=== PATIENT | female | born 1995 | race Caucasian/White ===

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

== ENCOUNTER 2017-03-17 20:55 | Emergency (ER) | payer OTHER ==
[~2017-03-17] VITALS: Ht 160 cm; Wt 68.1 kg
[~2017-03-17 20:55] MED LIST changes: +HYDR-3363 PO; -HYDR25T PO; +HYDR50TA70; +LATU1TAB PO; -RISP1TAB41 PO; +RISP1TAB42 PO; +TOPA50TA8 PO; +ZOFR4TAB3 PO
[2017-03-17 21:00] VITALS: BP 118/64
[2017-03-17 21:50] LABS: BASO % 0.3 % (0.0-1.0); EOS # 0.2 K/mm3 (0.0-0.50); EOS % 3.3 % (0.0-3.0); LARGE UNSTAINED CELL # 0.2 K/mm3 (0.0-0.4); LARGE UNSTAINED CELL % 2.1 % (0.0-4.0); LYMPH # 3.5 K/mm3 (1.5-6.5); LYMPH % 44.5 % (24.0-44.0); MEAN CORPUSCULAR HEMOGLOBIN 32.6 pg (27.0-33.0); MEAN CORPUSCULAR HGB CONC 33.1 g/dl (32.0-36.5); MEAN CORPUSCULAR VOLUME 98.5 fl (80.0-96.0); MONO # 0.4 K/mm3 (0.0-0.8); MONO % 5.4 % (0.0-5.0); NEUTROPHILS # 3.3 K/mm3 (1.8-7.7); NEUTROPHILS % 44.5 % (36.0-66.0); PLATELET COUNT, AUTOMATED 268 k/mm3 (150-450); RED CELL DISTRIBUTION WIDTH 12.2 % (11.5-14.5); WHITE BLOOD COUNT 7.5 K/mm3 (4.0-10.0)
[2017-03-17 21:53] LABS: CONTROL LINE HCG INT CTR LINE PRESENT
[2017-03-17 22:02] LABS: ALBUMIN 4.3 GM/DL (3.2-5.2); ALKALINE PHOSPHATASE 88 U/L (45-117); ALT/SGPT 27 U/L (12-78); ANION GAP 7 MEQ/L (8-16); AST/SGOT 11 U/L (15-37); BILIRUBIN,DIRECT < 0.1 MG/DL (0.0-0.2); BILIRUBIN,TOTAL 0.3 MG/DL (0.2-1.0); BLOOD UREA NITROGEN 6 MG/DL (7-18); CALCIUM LEVEL 8.7 MG/DL (8.5-10.1); CARBON DIOXIDE LEVEL 25 MEQ/L (21-32); CHLORIDE LEVEL 110 MEQ/L (98-107); CREATININE FOR GFR 0.55 MG/DL (0.55-1.02); GLUCOSE, FASTING 102 MG/DL (70-105); POTASSIUM SERUM 3.6 MEQ/L (3.5-5.1); SODIUM LEVEL 142 MEQ/L (136-145); TOTAL PROTEIN 7.6 GM/DL (6.4-8.2)
--- NOTE | 2017-03-17 23:00 | REPUSA ---
HISTORY: Right upper quadrant pain, nausea and vomiting. TECHNIQUE: Right upper quadrant ultrasound. ULTRASOUND RUQ: Liver: No intrahepatic ductal dilation. Gallbladder: Contracted and without stones or wall thickening. Common bile duct: Nondistended at 2 mm. Pancreas: No pancreatic duct dilation. Right kidney: 11.4 x 4.6 x 3.6 cm. Extrarenal pelvis without stones or hydronephrosis. Aorta: Normal caliber. Peritoneum: No free fluid. IMPRESSION: No acute right upper quadrant findings.
[2017-03-17] MEDS ORDERED: MACR100C43 PO (23:06)
== END 2017-03-17 23:20 | disposition home or self-care (01) ==
LOC: M ED 20:55
DX: K42.9 Umbilical hernia without obstruction or gangrene (principal); N39.0 Urinary tract infection, site not specified; R10.9 Unspecified abdominal pain; F17.210 Nicotine dependence, cigarettes, uncomplicated

== ENCOUNTER → 2017-04-02 | Outpatient (REF) | payer OTHER ==
[~2017-04-02] MED LIST changes: +MACR100C43 PO
== END ==
LOC: M SFHCCAPE 14:09
PROVIDERS: ATTEND Physician Assistant
DX: A74.9 Chlamydial infection, unspecified (principal); Z53.9 Procedure and treatment not carried out, unspecified reason

== ENCOUNTER → 2017-05-10 | Outpatient (REF) | payer OTHER | LOC: M SFHCCAPE 07:36 | PROVIDERS: ATTEND Physician Assistant | DX: R35.0 Frequency of micturition (principal) ==

== ENCOUNTER → 2017-07-23 | Outpatient (REF) | payer OTHER ==
[2017-07-23 17:25] LABS: BASO % 0.1 % (0.0-1.0); EOS # 0.1 10^3/uL (0.0-0.50); EOS % 1.7 % (0.0-3.0); IMMATURE GRANULOCYTE % 0.1 % (0-0); LYMPH # 3.4 10^3/uL (1.5-6.5); LYMPH % 44.7 % (24.0-44.0); MEAN CORPUSCULAR HEMOGLOBIN 32.1 pg (27.0-33.0); MEAN CORPUSCULAR HGB CONC 33.9 g/dl (32.0-36.5); MEAN CORPUSCULAR VOLUME 94.7 fl (80.0-96.0); MONO # 0.7 10^3/uL (0.0-0.8); MONO % 9.5 % (0.0-5.0); NEUTROPHILS # 3.3 10^3/uL (1.8-7.7); NEUTROPHILS % 43.9 % (36.0-66.0); PLATELET COUNT, AUTOMATED 280 10^3/uL (150-450); RED CELL DISTRIBUTION WIDTH 11.6 % (11.5-14.5); WHITE BLOOD COUNT 7.5 10^3/uL (4.0-10.0)
[2017-07-23 17:52] LABS: ALBUMIN 4.3 GM/DL (3.2-5.2); ALBUMIN/GLOBULIN RATIO 1.39 (1.00-1.93); ALKALINE PHOSPHATASE 81 U/L (45-117); ALT/SGPT 15 U/L (12-78); ANION GAP 8 MEQ/L (8-16); AST/SGOT 14 U/L (7-37); BILIRUBIN,TOTAL 0.4 MG/DL (0.2-1.0); BLOOD UREA NITROGEN 5 MG/DL (7-18); CALCIUM LEVEL 8.6 MG/DL (8.5-10.1); CARBON DIOXIDE LEVEL 24 MEQ/L (21-32); CHLORIDE LEVEL 106 MEQ/L (98-107); GLUCOSE, FASTING 76 MG/DL (70-105); HCG, SERUM QUANTITATIVE 41038 MIU/ML; POTASSIUM SERUM 4.1 MEQ/L (3.5-5.1); SODIUM LEVEL 138 MEQ/L (136-145); TOTAL PROTEIN 7.4 GM/DL (6.4-8.2)
== END ==
LOC: M SFHCCAPE 08:09
PROVIDERS: ATTEND Physician Assistant
DX: Z32.01 Encounter for pregnancy test, result positive (principal)

== ENCOUNTER 2017-08-02 19:12 | Emergency (ER) | payer OTHER ==
[2017-08-02 21:12] LABS: AMORPHOUS SEDIMENT RFX SMALL (NEGATIVE); KETONE, URINE AUTO RFX NEGATIVE (NEGATIVE); LEUKOCYTE ESTERASE UR AUTO RFX 3+ (NEGATIVE); NITRITE, URINE AUTO RFX NEGATIVE (NEGATIVE); RBC, URINE AUTO RFX 0 /HPF (0-3); SQUAM EPITHELIAL CELL UR AURFX 0 /HPF (0-6); WBC, URINE AUTO RFX 3 /HPF (0-3)
== END 2017-08-02 22:22 | disposition home or self-care (01) ==
LOC: M ED 19:12
DX: O23.91 Unspecified genitourinary tract infection in pregnancy, first trimester (principal); O99.511 Diseases of the respiratory system complicating pregnancy, first trimester; J45.909 Unspecified asthma, uncomplicated; Z3A.00 Weeks of gestation of pregnancy not specified; Z87.891 Personal history of nicotine dependence
CPT/HCPCS: 81001

== ENCOUNTER → 2017-08-16 | Outpatient (CLI) | payer OTHER ==
[2017-08-16 20:19] LABS: BASO % 0.1 % (0.0-1.0); EOS # 0.1 10^3/uL (0.0-0.50); HEMATOCRIT 34.5 % (36.0-47.0); HEMOGLOBIN 11.6 g/dl (12.0-16.0); IMMATURE GRANULOCYTE % 0.3 % (0-0); LYMPH # 2.6 10^3/uL (1.5-6.5); LYMPH % 36.9 % (24.0-44.0); MEAN CORPUSCULAR HEMOGLOBIN 32.6 pg (27.0-33.0); MEAN CORPUSCULAR HGB CONC 33.6 g/dl (32.0-36.5); MEAN CORPUSCULAR VOLUME 96.9 fl (80.0-96.0); MONO # 0.6 10^3/uL (0.0-0.8); MONO % 7.7 % (0.0-5.0); NEUTROPHILS # 3.8 10^3/uL (1.8-7.7); PLATELET COUNT, AUTOMATED 296 10^3/uL (150-450); RED BLOOD COUNT 3.56 10^6/uL (4.00-5.40); RED CELL DISTRIBUTION WIDTH 12.1 % (11.5-14.5); WHITE BLOOD COUNT 7.1 10^3/uL (4.0-10.0)
[2017-08-16 22:24] LABS: CHLAMYDIA DNA AMPLIFICATION NEGATIVE (NEGATIVE); GC DNA AMPLIFICATION NEGATIVE (NEGATIVE)
[2017-08-17 17:47] LABS: RUBELLA IgG QUALITATIVE EQUIVOCAL (IMMUNE)
[2017-08-17 18:08] LABS: HBsAg Prenatal NEGATIVE (NEGATIVE)
[2017-08-17 18:16] LABS: HEPATITIS C VIRUS ABY INDEX 0.2 INDEX (<0.8)
[2017-08-17 18:16] LABS: HIV 1&2 SCREEN CENTAUR NEGATIVE (NEGATIVE)
== END ==
LOC: M SMT 15:52
DX: Z34.81 Encounter for supervision of other normal pregnancy, first trimester (principal)
CPT/HCPCS: 86762

== ENCOUNTER → 2017-10-19 | Outpatient (CLI) | payer OTHER | LOC: M SMT 11:32 | DX: Z31.438 Encounter for other genetic testing of female for procreative management (principal) | CPT/HCPCS: 36415 ==

== ENCOUNTER 2017-11-24 23:56 | Outpatient (CLI) | payer OTHER ==
[2017-11-25] MEDS ORDERED: ONDANSETRON 4 MG ORAL DISINTEGRATING TAB (S0181) PO (01:15)
[2017-11-25] MEDS: LACTATED RINGER'S 1000 ML IV (01:22)
[2017-11-25] MEDS: FAMOTIDINE 20 MG TAB PO (01:42)
[2017-11-25] MEDS: LR 1,000 ML IV (03:00)
== END 2017-11-25 06:31 | disposition home or self-care (01) ==
LOC: M LDO 23:56
DX: O21.9 Vomiting of pregnancy, unspecified (principal); O98.512 Other viral diseases complicating pregnancy, second trimester; Z3A.24 24 weeks gestation of pregnancy

== ENCOUNTER → 2017-12-24 | Outpatient (CLI) | payer OTHER ==
[2017-12-24 15:52] LABS: HEMATOCRIT 28.1 % (36.0-47.0); HEMOGLOBIN 9.7 g/dl (12.0-15.5); MEAN CORPUSCULAR HEMOGLOBIN 34.2 pg (27.0-33.0); MEAN CORPUSCULAR HGB CONC 34.5 g/dl (32.0-36.5); MEAN CORPUSCULAR VOLUME 98.9 fl (80.0-96.0); PLATELET COUNT, AUTOMATED 227 10^3/uL (150-450); RED BLOOD COUNT 2.84 10^6/uL (4.00-5.40); RED CELL DISTRIBUTION WIDTH 12.4 % (11.5-14.5); WHITE BLOOD COUNT 9.4 10^3/uL (4.0-10.0)
[2017-12-24 16:08] LABS: GLUCOSE CHALLENGE TEST 1 HOUR 109 MG/DL (LESS THAN 140)
== END ==
LOC: M LAB 14:38
DX: Z34.82 Encounter for supervision of other normal pregnancy, second trimester (principal)
CPT/HCPCS: 82950

== ENCOUNTER → 2018-02-18 | Outpatient (REF) | payer OTHER | LOC: M LAB REF 17:13 | DX: Z34.83 Encounter for supervision of other normal pregnancy, third trimester (principal) ==

== ENCOUNTER → 2018-03-08 | Outpatient (CLI) | payer OTHER | LOC: M LDO 19:36 | DX: O47.1 False labor at or after 37 completed weeks of gestation (principal); Z3A.39 39 weeks gestation of pregnancy; O99.333 Smoking (tobacco) complicating pregnancy, third trimester; F17.210 Nicotine dependence, cigarettes, uncomplicated | CPT/HCPCS: 59025 ==

== ENCOUNTER 2018-03-13 07:30 | Inpatient (IN) | payer OTHER ==
[2018-03-13 08:52] LABS: HEMOGLOBIN 11.4 g/dl (12.0-15.5); MEAN CORPUSCULAR HEMOGLOBIN 32.7 pg (27.0-33.0); MEAN CORPUSCULAR HGB CONC 33.5 g/dl (32.0-36.5); MEAN CORPUSCULAR VOLUME 97.4 fl (80.0-96.0); PLATELET COUNT, AUTOMATED 221 10^3/uL (150-450); RED BLOOD COUNT 3.49 10^6/uL (4.00-5.40); RED CELL DISTRIBUTION WIDTH 12.8 % (11.5-14.5)
[2018-03-13] MEDS: OXYTOCIN DRIP 30 UNITS in APPROPRIATE DILUENT 1 EA IV (10:14)
[2018-03-13] MEDS ORDERED: LR 1,000 ML IV (10:14)
[2018-03-13] MEDS ORDERED: RHOGAM 300 MCG (1500 IU) INJ (J2790) IM (10:15)
[2018-03-13] MEDS ORDERED: PROMETHAZINE 25 MG TAB PO (10:15)
[2018-03-13] MEDS ORDERED: DOCUSATE SODIUM 100 MG CAP PO (10:15)
[2018-03-13] MEDS ORDERED: ONDANSETRON 4MG/2ML VIAL (J2405) IV (10:15)
[2018-03-13] MEDS ORDERED: DIBUCAINE 1% OINTMENT 30GM TOP (10:15)
[2018-03-13] MEDS: IBUPROFEN 800 MG TAB PO (12:28)
[2018-03-13] MEDS: PRENATAL VITAMINS CHEWABLE TABLET PO (12:28)
[2018-03-13] MEDS: LR 1,000 ML IV (12:37)
[2018-03-13] MEDS: ACETAMINOPHEN 500 MG TAB PO (19:50)
[2018-03-14] MEDS: PRENATAL VITAMINS CHEWABLE TABLET PO (07:49)
[2018-03-14] MEDS: IBUPROFEN 800 MG TAB PO (07:51)
[2018-03-14] MEDS: MEASLES,MUMPS,RUBELLA VACCINE INJ (MMR-II) (90707) SC (11:33)
== END 2018-03-14 14:40 | disposition home or self-care (01) | DRG 541 ==
LOC: M LDO 07:30 → M LDI 08:29 → M OBS 12:02
PROVIDERS: Obstetrics & Gynecology
PROC: 10E0XZZ Delivery of Products of Conception, External Approach (ICD-10-PCS; principal; 2018-03-13)
PROC: 10D17Z9 Manual Extraction of Products of Conception, Retained, Via Natural or Artificial Opening (ICD-10-PCS; 2018-03-13)
DX: O73.0 Retained placenta without hemorrhage (principal); Z37.0 Single live birth; Z3A.40 40 weeks gestation of pregnancy

== ENCOUNTER → 2018-10-17 | Outpatient (REF) | payer OTHER ==
[~2018-10-17] MED LIST changes: -ACET50TA PO; +COLA100C5 PO; +FLAG500T PO; +LATU1TAB; +MAPA500T2 PO; +MOTR200T44 PO; +PRENTAB9 PO; +ZOFR4TAB14 PO; -ZOFR4TAB3 PO
[2018-10-17 18:08] LABS: INFLUENZA A AMPLIFICATION NEGATIVE (NEGATIVE); INFLUENZA B AMPLIFICATION NEGATIVE (NEGATIVE)
== END ==
LOC: M LAB REF 16:25
PROVIDERS: ATTEND Physician Assistant
DX: J11.1 Influenza due to unidentified influenza virus with other respiratory manifestations (principal)

== ENCOUNTER → 2019-01-13 | Outpatient (REF) | payer OTHER ==
[~2019-01-13] MED LIST changes: +TRAZ1TAB10 PO; -TRAZO50TA PO
[2019-01-13 19:30] LABS: APPEARANCE, URINE HAZY (CLEAR); BACTERIA, URINE AUTO NEGATIVE (NEGATIVE); BILIRUBIN, URINE AUTO NEGATIVE (NEGATIVE); BLOOD, URINE BLOOD 2+ (NEGATIVE); COLOR, URINE YELLOW (YELLOW); GLUCOSE, URINE (UA) AUTO NEGATIVE (NEGATIVE); KETONE, URINE AUTO NEGATIVE (NEGATIVE); LEUKOCYTE ESTERASE, URINE AUTO TRACE (NEGATIVE); MUCUS, URINE SMALL (NEGATIVE); NITRITE, URINE AUTO NEGATIVE (NEGATIVE); PROTEIN, URINE AUTO NEGATIVE (NEGATIVE); RBC, URINE AUTO 1 /HPF (0-3); SPECIFIC GRAVITY URINE AUTO 1.016 (1.002-1.035); SQUAMOUS EPITHELIAL CELL UR AU 2 /HPF (0-6); UROBILINOGEN, URINE AUTO 0.2 mg/dL (0.0-2.0); WBC, URINE AUTO 1 /HPF (0-3)
== END ==
LOC: M LAB REF 17:33
PROVIDERS: ATTEND Obstetrics & Gynecology
DX: M54.5 Low back pain (principal)

== ENCOUNTER 2019-01-19 02:00 | Emergency (ER) | payer OTHER ==
[~2019-01-19] VITALS: Ht 157.5 cm; Wt 75.0 kg
[2019-01-19 02:39] LABS: BASO % 0.1 % (0.0-1.0); EOS # 0.1 10^3/uL (0.0-0.50); HEMATOCRIT 38.1 % (36.0-47.0); HEMOGLOBIN 12.8 g/dl (12.0-15.5); LYMPH # 1.2 10^3/uL (1.5-6.5); LYMPH % 17.2 % (24.0-44.0); MEAN CORPUSCULAR HEMOGLOBIN 32.4 pg (27.0-33.0); MEAN CORPUSCULAR HGB CONC 33.6 g/dl (32.0-36.5); MEAN CORPUSCULAR VOLUME 96.5 fl (80.0-96.0); MONO # 0.4 10^3/uL (0.0-0.8); MONO % 6.3 % (0.0-5.0); NEUTROPHILS % 75.3 % (36.0-66.0); PLATELET COUNT, AUTOMATED 280 10^3/uL (150-450); RED BLOOD COUNT 3.95 10^6/uL (4.00-5.40); WHITE BLOOD COUNT 6.7 10^3/uL (4.0-10.0)
[2019-01-19 03:01] LABS: ALBUMIN 4.2 GM/DL (3.2-5.2); ALT/SGPT 25 U/L (12-78); BILIRUBIN,DIRECT 0.2 MG/DL (0.0-0.2); BILIRUBIN,TOTAL 0.6 MG/DL (0.2-1.0); BLOOD UREA NITROGEN 7 MG/DL (7-18); CALCIUM LEVEL 9.3 MG/DL (8.5-10.1); CARBON DIOXIDE LEVEL 27 MEQ/L (21-32); CHLORIDE LEVEL 105 MEQ/L (98-107); CREATININE FOR GFR 0.64 MG/DL (0.55-1.30); GLOMERULAR FILTRATION RATE > 60.0 (>60); GLUCOSE, FASTING 91 MG/DL (70-100); LIPASE 70 U/L (73-393); POTASSIUM SERUM 4.2 MEQ/L (3.5-5.1); SODIUM LEVEL 138 MEQ/L (136-145); TOTAL PROTEIN 7.5 GM/DL (6.4-8.2)
[2019-01-19 03:05] LABS: HCG, SERUM QUALITATIVE NEGATIVE (NEGATIVE)
[2019-01-19] MEDS ORDERED: NS 1,000 ML IV ONE (04:00)
[2019-01-19] MEDS ORDERED: KETOROLAC 30 MG/ML VIAL (J1885) IV ONE (04:00)
[2019-01-19] MEDS ORDERED: ONDANSETRON 4MG/2ML VIAL (J2405) IV ONE (04:00)
[2019-01-19] MEDS ORDERED: ONDA4TAB6 PO (07:14)
[2019-01-19 07:30] VITALS: BP 103/56
--- NOTE | 2019-01-19 18:56 | ECGEPIP ---
[facility] [place] - ED Test Date: 2019-01-19 Pat Name: SUKH PAULSON Department: Room: - Gender: Female Direct Care Supervisor: SEAN : 1995 Requested By: BRIELLE Harris Order Number: [id number] Reading MD: Marion Beckwith Measurements Intervals [place] Rate: 94 P: 40 FL: 132 QRS: QRSD: 89 T: 6 QT: 320 QTc: 402 Interpretive Statements SINUS RHYTHM POSSIBLE RIGHT VENTRICULAR CONDUCTION DELAY MINIMAL VOLTAGE CRITERIA FOR LVH, CONSIDER NORMAL VARIANT POSSIBLE ANTERIOR MYOCARDIAL INFARCTION, OF INDETERMINATE AGE Electronically Signed on 01-19-2019 18:55:48 EDT by Marion Beckwith
== END 2019-01-19 07:54 | disposition home or self-care (01) ==
LOC: M ED 02:00
DX: K52.9 Noninfective gastroenteritis and colitis, unspecified (principal)
CPT/HCPCS: 80048; 80076; 81001; 83690; 84703; 85025; 87086; 93005; 96361; 96374; 96375; 99285; J1885; J2405

== ENCOUNTER 2019-11-18 23:48 | Inpatient (IN) | payer MEDICAID, OTHER ==
[~2019-11-18] VITALS: Ht 157.5 cm; Wt 75.3 kg
[~2019-11-18 23:48] MED LIST changes: +HYDR1TAB33 PO; -HYDRO50TAB PO; +ONDA4TAB6 PO
[2019-11-19 00:24] LABS: HEMATOCRIT 40.4 % (36.0-47.0); HEMOGLOBIN 13.9 g/dl (12.0-15.5); MEAN CORPUSCULAR HEMOGLOBIN 32.4 pg (27.0-33.0); MEAN CORPUSCULAR HGB CONC 34.4 g/dl (32.0-36.5); MEAN CORPUSCULAR VOLUME 94.2 fl (80.0-96.0); PLATELET COUNT, AUTOMATED 377 10^3/uL (150-450); RED BLOOD COUNT 4.29 10^6/uL (4.00-5.40); WHITE BLOOD COUNT 11.8 10^3/uL (4.0-10.0)
[2019-11-19 00:41] LABS: HCG, SERUM QUALITATIVE NEGATIVE (NEGATIVE)
[2019-11-19 00:52] LABS: AMPHETAMINES LEVEL URINE NEGATIVE (NEGATIVE); BARBITURATES URINE NEGATIVE (NEGATIVE); BENZODIAZEPINES URINE NEGATIVE (NEGATIVE); CANNABINOIDS URINE POSITIVE (NEGATIVE); COCAINE METABOLITE URINE NEGATIVE (NEGATIVE); METHADONE URINE NEGATIVE (NEGATIVE); OPIATES URINE NEGATIVE (NEGATIVE); PHENCYCLIDINE URINE NEGATIVE (NEGATIVE)
[2019-11-19 01:00] LABS: ACETAMINOPHEN LEVEL < 2.0 UG/ML (10.0-30.0); ALBUMIN 4.7 GM/DL (3.2-5.2); ALT/SGPT 35 U/L (12-78); BILIRUBIN,DIRECT 0.1 MG/DL (0.0-0.2); BILIRUBIN,TOTAL 0.4 MG/DL (0.2-1.0); BLOOD UREA NITROGEN 4 MG/DL (7-18); CALCIUM LEVEL 9.7 MG/DL (8.5-10.1); CARBON DIOXIDE LEVEL 26 MEQ/L (21-32); CHLORIDE LEVEL 109 MEQ/L (98-107); CREATININE FOR GFR 0.56 MG/DL (0.55-1.30); ETHYL ALCOHOL (ETHANOL) < 0.003 % (0.000-0.010); GLOMERULAR FILTRATION RATE > 60.0 (>60); GLUCOSE, FASTING 87 MG/DL (70-100); POTASSIUM SERUM 4.2 MEQ/L (3.5-5.1); SODIUM LEVEL 141 MEQ/L (136-145); TOTAL PROTEIN 8.4 GM/DL (6.4-8.2)
[2019-11-19] MEDS ORDERED: traZODone 50 MG TAB PO PRN (02:45)
[2019-11-19] MEDS ORDERED: MOM 30ML SUSPENSION UDC PO PRN (02:45)
[2019-11-19] MEDS ORDERED: NICOTINE 21MG/24HR 1 EA TRANSDERMAL TD PRN (02:45)
[2019-11-19] MEDS ORDERED: LORazepam 1 MG TAB PO PRN (02:45)
[2019-11-19 04:16] VITALS: BP 125/66
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
[2019-11-19] MEDS: ACETAMINOPHEN TAB 650MG DOSE (2X325MG) PO PRN (11:31)
[2019-11-19] MEDS ORDERED: SERTRALINE HCL 25 MG TABLET PO ONE (12:00)
--- NOTE | 2019-11-19 12:24 | HPEPDOC ---
General Date of Admission Nov 19, 2019 at 02:32 Date of Service: Nov 19, 2019 Attending Physician: NEYMAR CRUZ MD Chief Complaint The patient is a 24-year-old female admitted with a reason for visit of Unspecified Depressive Disorder. Source: Patient Exam Limitations: No limitations Timing/Duration: Getting worse Severity: Moderate, Severe Associated Symptoms: Other (Depressed, self harm) Home Medications No Active Prescriptions or Reported Meds Allergies Coded Allergies: No Known Allergies (Verified , 11/18/19) Past Medical History Medical History Depression/anxiety, with history of prior suicide attempt with overdose and a history of self harm with cutting Family History Mother: Had history of severe depression and alcohol use disorder and from alcohol related liver disease Father: Alive, unknown Siblings: all in good health without known chronic illnesses Children: Alive, well Social History * Smoker: Denies, current smoker Alcohol: rarely Drugs: denies Recent Travel/Sick Contacts: Denies: Recent travel, Recent sick contacts Psychosocial History: Anxiety, Decreased mood, Depression Lives with boyfriend and two year old child. Uses occasional marijuana, smokes 4 cigarettes a day but only sometimes, rare alcohol use A-FIB/CHADSVASC A-FIB History Current/History of A-Fib/PAF?: No Current PO Anticoag Therapy: No Age/Risk Factor Scoring CHADSVASC: CHADSVASC Response (Comments) Value Age Risk Factor Age < 65 years old 0 Gender Risk Factor Female 1 Hx of CHF No 0 Hx of HTN No 0 Hx of Stroke/TIA/or VTE No 0 Hx of Diabetes No 0 Hx of Vascular Disease No 0 Total 1 Treatment Treatment ordered: NONE Reason Anticoagulant not given: Not indicated/[id number] Review of Systems Constitutional: Denies: Chills, Fever, Night Sweats Eyes: Denies: Pain, Vision change ENT: Denies: Head Aches, Ear Pain, Dysphagia Pulmonary: Denies: Dyspnea, Cough Cardiovascular: Denies: Chest Pain, Palpitations, Orthopnea, Paroxysmal Noc. Dyspnea, Edema, Lt Headedness, Other Symptoms Gastrointestinal: Denies: Nausea, Vomiting, Abdominal Pain, Diarrhea Genitourinary: Denies: Dysuria, Frequency, Incontinence, Retention Hematologic: Denies: Bruising, Bleeding Excessively Endocrine: Denies: Polydipsia, Polyphagia, Polyuria, Heat Intolerance, Cold Intolerance, Other Endocrine Sx Musculoskeletal: Denies: Neck Pain, Back Pain, Joint Pain, Muscle Pain, Spasms Neurological: Denies: Weakness, Numbness, Change in speech, Confusion Psych: Reports: Anxiety, Depression, Thoughts of Self Harm (without actual plan), Other Psych (has resumed self-mutilation with cutting and that is what prompted her to present) Physical Examination General Exam: Positive: Alert, No Acute Distress Eye Exam: Positive: PERRLA, Conjunctiva & lids normal, EOMI; Negative: Sclera icteric ENT Exam: Positive: Atraumatic, Mucous membr. moist/pink, Pharynx Normal Neck Exam: Positive: Supple; Negative: JVD, thyromegaly Chest Exam: Positive: Clear to auscultation, Normal air movement Heart Exam: Positive: Rate Normal, Regular Rhythm, Normal S1, Normal S2; Negative: Murmurs, Rubs Abdomen Exam: Positive: Normal bowel sounds, Soft; Negative: Tenderness, Hepatospenomegaly Extremity Exam: Positive: Normal pulses; Negative: Clubbing, Cyanosis, Edema Skin Exam: Positive: Nl turgor and temperature, Lesion (Has shallow numerous erythematous sharp cuts on dorsum of L arm. Has several tattooes without erythema or rashes); Negative: Breakdown Neuro Exam: Positive: Normal Gait, Normal Speech, Cranial Nerves 3-12 NL Psych Exam: Positive: Oriented x 3, Other (Depressed mood, at times becomes teary) Vital Signs Vital Signs Date Time Temp Pulse Resp B/P (MAP) Pulse Ox O2 Delivery O2 Flow Rate FiO2 11/19/19 04:16 97.4 72 16 125/66 (85) 99 Room Air Laboratory Data Labs 24H Laboratory Tests 2 11/18/19 23:58: Nucleated Red Blood Cells % (auto) 0.0, Anion Gap 6L, Glomerular Filtration Rate > 60.0, Calcium Level 9.7, Total Bilirubin 0.4, Direct Bilirubin 0.1, Aspartate Amino Transf (AST/SGOT) 15, Alanine Aminotransferase (ALT/SGPT) 35, Alkaline Phosphatase 125H, Total Protein 8.4H, Albumin 4.7, Albumin/Globulin Ratio 1.27, Thyroid Stimulating Hormone (TSH) 3.770H, Human Chorionic Gonadotropin, Qual NEGATIVE, Salicylates Level 3.0L, Acetaminophen Level < 2.0L, Ethyl Alcohol Level < 0.003 11/19/19 00:01: Urine Opiates Screen NEGATIVE, Urine Methadone Screen NEGATIVE, Urine Barbiturates Screen NEGATIVE, Urine Phencyclidine Screen NEGATIVE, Urine Amphetamines Screen NEGATIVE, Urine Benzodiazepines Screen NEGATIVE, Urine Cocaine Metabolite Screen NEGATIVE, Urine Cannabinoids Screen POSITIVEH CBC/BMP Laboratory Tests 11/18/19 23:58 Assessment/Plan 24 yo F admitted to [facility] for worsening depression with self mutilation with cutting with passive thoughts of self harm since she stopped working. 1. Depression with self harm: - Plan per Psychiatry. Had not followed with a mental health provider for ~3 years since having her child. 2. Smoking: -Discussed cessation and reports that it is difficult for her to consider quitting at this time as she uses it as a coping mechanism most of the time and is not a daily smoker. She declined replacement therapy at this time. Thank you for the medical consultation. She is currently in good physical health, her labs were within normal limits and I will sign off at this time. Plan / VTE VTE Prophylaxis Ordered?: No VTE Exclusion Mechanical Proph: Low Risk for VTE VTE Exclusion Pharmacological: At Low Risk for VTE NEYMAR CRUZ MD Nov 19, 2019 11:47
[2019-11-19] MEDS: MAALOX 30 ML SUSP *UDC PO PRN (15:04)
[2019-11-19 15:49] VITALS: BP 114/64
[2019-11-20 06:15] VITALS: BP 140/72
[2019-11-20] MEDS: MAALOX 30 ML SUSP *UDC PO PRN (06:49)
[2019-11-20] MEDS ORDERED: INFLUENZA QUADRIVALENT PF VACCINE 0.5ML SYRINGE (90686) IM ONE (09:00)
[2019-11-20] MEDS ORDERED: SERTRALINE HCL 25 MG TABLET PO SCH (09:00)
[2019-11-20] MEDS: ACETAMINOPHEN TAB 650MG DOSE (2X325MG) PO PRN (09:07)
--- NOTE | 2019-11-20 09:14 | MHIPNPDOC ---
[facility] Progress Note Progress Note DATE OF SERVICE: 11/20/19 HISTORY: . VITAL SIGNS: See below. NEW TEST RESULTS: . CURRENT MEDICATIONS: See below. MENTAL STATUS EXAMINATION: Patient is a -year old female, who is . Speech: Is . Language skills are . Thought processes including: . Thought content: . Abstract reasoning, and computation: . Description of asso ciations: . Description of abnormal or psychotic thoughts: . Judgment: . Insight: [very limited, good, fair. poor]. Orientation: . Recent and remote memory: . Attention span and concentration: . Language: . Fund of knowledge: . Mood: . Affect: . DIAGNOSES: 1. . 2. . 3. . ASSESSMENT: MANAGEMENT PLAN: . TIME SPENT: minutes. Vital Signs Vital Signs Date Time Temp Pulse Resp B/P (MAP) Pulse Ox O2 Delivery O2 Flow Rate FiO2 11/20/19 06:15 98.1 65 16 140/72 (94) 99 Room Air Current Medications Current Medications Medications (Trade) Dose Ordered Sig/Manasa Route PRN Reason Start Time Stop Time Status Last Admin Dose Admin Acetaminophen (Tylenol Tab) 650 mg Q6HP PRN PO HEADACHE or DISCOMFORT 11/19/19 02:45 11/20/19 09:07 Al Hydrox/Mg Hydrox/Simethicone (Mylanta) 30 ml Q4HP PRN PO HEARTBURN/INDIGESTION 11/19/19 02:45 11/20/19 06:49 Home Med (Med Rec Complete!) ASDIRECTED XX 11/19/19 02:15 11/19/19 02:12 DC Lorazepam (Ativan) 1 mg Q6HP PRN PO ANXIETY/AGITATION 11/19/19 02:45 11/19/19 11:04 DC 11/19/19 04:35 Magnesium Hydroxide (Milk Of Magnesia) 30 ml DAILYPRN PRN PO CONSTIPATION 11/19/19 02:45 Nicotine (Nicoderm Cq 21mg) 1 patch DAILY PRN TD Nicotine Withdrawl 11/19/19 02:45 Sertraline HCl (Zoloft) 25 mg DAILY PO 11/20/19 09:00 11/20/19 09:03 Trazodone HCl (Desyrel) 50 mg QHSP PRN PO INSOMNIA 11/19/19 02:45 11/19/19 20:59 Allergies Coded Allergies: No Known Allergies (Verified , 11/18/19) ARMAND SULLIVAN DO Nov 20, 2019 09:14
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
[2019-11-20] MEDS ORDERED: SERT25TA21 PO (11:55)
[2019-11-20] MEDS ORDERED: TRAZ-252 PO (11:55)
[2019-11-20] MEDS ORDERED: NICO21PAT TD (11:55)
== END 2019-11-20 14:35 | disposition home or self-care (01) | DRG 754 ==
LOC: M ED 23:48 → M ED INP 11-19 02:32 → M PSY 11-19 03:45
PROVIDERS: ADMIT Psychiatry & Neurology Psychiatry; ATTEND Psychiatry & Neurology Addiction Medicine
DX: F32.9 Major depressive disorder, single episode, unspecified (principal); F60.3 Borderline personality disorder; F43.21 Adjustment disorder with depressed mood; F12.188 Cannabis abuse with other cannabis-induced disorder; Z81.1 Family history of alcohol abuse and dependence; Z81.8 Family history of other mental and behavioral disorders; Z91.5 Personal history of self-harm

== ENCOUNTER 2020-03-27 10:49 | Emergency (ER) | payer MEDICAID, OTHER ==
[~2020-03-27] VITALS: Ht 157.5 cm; Wt 74.5 kg
[~2020-03-27 10:49] MED LIST changes: +NICO21PAT TD; +SERT25TA21 PO; +TRAZ-252 PO
[2020-03-27 10:50] VITALS: BP 112/64
[2020-03-27] MEDS ORDERED: AUGMENTIN 875 MG TAB PO ONE (11:45)
[2020-03-27] MEDS ORDERED: KETOROLAC 60MG 2ML VIAL IM ONE (11:45)
[2020-03-27] MEDS ORDERED: BENZOCAINE 20% GEL 9GM TUBE (ANBESOL MAX STRENGTH) TOP ONE (11:45)
[2020-03-27] MEDS ORDERED: AUGM875T28 PO (11:51)
[2020-03-27] MEDS ORDERED: IBUP-1022 PO (11:51)
== END 2020-03-27 12:11 | disposition home or self-care (01) ==
LOC: M ED 10:49
DX: K08.89 Other specified disorders of teeth and supporting structures (principal); G89.29 Other chronic pain; F17.210 Nicotine dependence, cigarettes, uncomplicated
CPT/HCPCS: 84702; 96372; 99282; J1885

== ENCOUNTER 2021-04-11 19:30 | Emergency (ER) | payer OTHER ==
[~2021-04-11] VITALS: Ht 157.5 cm; Wt 71.8 kg
[~2021-04-11 19:30] MED LIST changes: +AUGM875T28 PO; +IBUP-1022 PO
[2021-04-11 19:31] VITALS: BP 125/80
== END 2021-04-11 22:17 | disposition home or self-care (01) ==
LOC: M ED 19:30
DX: M79.10 Myalgia, unspecified site (principal); R43.9 Unspecified disturbances of smell and taste; R05 Cough
CPT/HCPCS: 99283; U0003